=== PATIENT | male | born 2000 | race Asian ===

== ENCOUNTER 2023-03-23 14:30 | Outpatient (RCR) | payer SELFPAY | END 2023-05-23 14:46 | disposition home or self-care (01) | PROVIDERS: Visit Provider Nurse Practitioner Family | DX: M25.569 Pain in unspecified knee (principal); M76.30 Iliotibial band syndrome, unspecified leg; M62.81 Muscle weakness (generalized); Z51.89 Encounter for other specified aftercare | CPT/HCPCS: 97110; 97112; 97140; 97161 ==